=== PATIENT | female | born 1955 | race Caucasian/White ===

== ENCOUNTER 2017-04-30 14:02 | Emergency (ER) | payer OTHER ==
--- NOTE | ~2017-04-30 | US85 ---
[facility] A Service of [facility] RADIOLOGY TEXT RESULTS PATIENT: YASMEEN LINCOLN LOCATION: SED : 59 UNIT #: [id number] AGE: [address]: Jessa Raphael SEX: F ORDER DR: [id number] [place] [id number] MR#: [id number] Acc #: [id number] NAME: YASMEEN LINCOLN : 1955 SEX: F STUDY DATE/TIME: 04/30/2017 15:42 UNIT: SED ROOM: STUDY DESCRIPTION: [facility] or [facility] Attending Physician: Jessa Raphael P.A.-C. Ordering Physician: Jessa Raphael P.A.-C. Primary Care Physician: Zackary Silva M.D. MEDICAL IMAGING REPORT This report is preliminary unless electronic signature is present. EXAM Unilateral right lower extremity venous Doppler, 04/30/2017. HISTORY Right leg pain for 2 days and remote prior history of right lower extremity DVT in 2012. PROCEDURE Blanco-scale imaging, color-Doppler flow imaging and Doppler waveform analysis. FINDINGS There is normal color flow, compressibility and where appropriate, respiratory phasicity and/or augmentation throughout the entire right lower extremity, deep venous system including the below-knee tibial and peroneal veins, as well as in the superficial saphenous. There is some nonocclusive echogenic intraluminal material in the distal right superficial femoral vein, but the vessel still shows normal flow, augmentation and compressibility. IMPRESSION Small amount of what appears to be chronic nonocclusive thrombus in the right superficial femoral vein distally but no acute thrombus. Otherwise, negative unilateral right lower extremity venous Doppler. No evidence of acute or occlusive DVT. Dictated by... Kevin Wing M.D. THIS IS AN ELECTRONICALLY VERIFIED REPORT [facility] A Service of [facility] & [facility] RADIOLOGY TEXT RESULTS PATIENT: YASMEEN LINCOLN LOCATION: SED : 59 UNIT #: [id number] AGE: [address]: Jessa Raphael SEX: F ORDER DR: Kevin Wing M.D. at 05/01/2017 4:10 PM ADELINE/jemy TD: 04/30/2017 18:16 JOB #: [id number] MEDICAL IMAGING REPORT Page 1 of 1
[~2017-04-30 14:02] MED LIST: ANTIVERT PO; BACLOFEN20 M1 PO; CALCIUM 500 + D1 TAB PO; CALCIUM 600 + D1 TA1 PO; CELEXA20 MG PO; COUMADIN5 MG PO; DICLOFENAC PO; DOCUSATE SODIU100 MG PO; FEMHRT 1/5 TABL1 TAB PO; HYDROCODON-ACE1 EAC5; HYDROCODONE-APA1 T54 PO; LEVOCETIRIZINE D5 MG PO; LOVENOX80 MG/0.8 INJ; MILK OF MAGNESIA PO; MOBIC PO; PERCOCET 7.5-31 EACH PO; TOPAMAX PO; TOPIRAMATE100 MG PO; XYZAL5 MG PO; ZANAFLEX4 M1 PO
[2017-04-30] MEDS ORDERED: XARELTO10 MG (18:03)
[2017-04-30 18:19] LABS: BASOPHIL% 0.5 % (0-2.5); EOSINOPHIL# 0.1 X10e3 (0-0.7); EOSINOPHIL% 2.7 % (0.0-7.0); HEMATOCRIT 41.7 % (35.0-45.0); HEMOGLOBIN 13.5 gm/dL (12.0-16.0); LYMPHOCYTE# 1.5 X10e3 (1.0-3.5); LYMPHOCYTE% 31.6 % (17.0-45.0); MEAN CELL VOLUME 83.6 FL (83-96); MEAN CORPUSCULAR HGB CONC 32.3 g/dL (30-36); MEAN PLATELET VOLUME 7.7 FL (6.5-11.5); MONOCYTE# 0.4 X10e3 (0-1.0); MONOCYTE% 9.2 % (3.0-12.0); NEUTROPHIL# 2.6 X10e3 (1.5-7.1); PLATELET COUNT 171 X10e3 (140-420); RED BLOOD COUNT 4.99 X10e (3.90-5.30); WHITE BLOOD COUNT 4.7 X10e3 (4.0-10.5)
[2017-04-30 18:24] LABS: INR 1.1; PROTHROMBIN TIME (PATIENT) 12.7 SECONDS (9.5-12.4)
[2017-04-30 18:31] LABS: PARTIAL THROMBOPLASTIN TIME 28.9 SECONDS (25.6-38.1)
[2017-04-30 18:34] LABS: DIFF IND NO
== END 2017-04-30 18:03 | disposition home or self-care (01) ==
LOC: SED 14:02
PROVIDERS: Physician Assistant
DX: I82.511 Chronic embolism and thrombosis of right femoral vein (principal); Z87.891 Personal history of nicotine dependence; Z79.899 Other long term (current) drug therapy
CPT/HCPCS: 36415; 85025; 85610; 85730; 93971; 99284